=== PATIENT | male | born 1980 | race Caucasian/White ===

== ENCOUNTER 2017-12-01 12:13 | Emergency (ER) | payer OTHER ==
[2017-12-01] MEDS ORDERED: chlorproMAZINE INJ* 25 MG/ML 2 ML (50 MG) IM ONE (12:26)
[2017-12-01] MEDS ORDERED: chlorproMAZINE INJ* 25 MG/ML 2 ML (50 MG) ONE (12:26)
[2017-12-01 13:03] LABS: ABS Basophils 0 10^3/ul (0-0.2); ABS Eosinophils 0 10^3/ul (0-0.6); ABS Lymphocytes 1.1 10^3/ul (1.0-4.8); ABS Monocytes 0.7 10^3/ul (0-0.8); ABS Neutrophils 3.5 10^3/ul (1.5-7.7); ABS Nucleated RBC 0 10^3/ul; Eosinophil % 0.4 % (0-6); Hematocrit 40 % (42-52); Hemoglobin 13.7 g/dl (14.0-18.0); Lymphocyte % 21.2 % (25-47); Mean Corpuscular HGB Conc 34 g/dl (31-36); Mean Corpuscular Hemoglobin 30 pg (27-31); Mean Corpuscular Volume 89 fL (80-94); Mean Platelet Volume 8 um3 (7.4-10.4); Nucleated Red Blood Cells % 0; Platelet Count 258 10^3/ul (150-450); Red Blood Count 4.53 10^6/ul (4.0-5.4); Red Cell Distribution Width 15 % (10.5-15); White Blood Count 5.4 10^3/ul (3.5-10.8)
[2017-12-01 13:20] LABS: EGFR Non-African American 69.8 (>60)
--- NOTE | 2017-12-01 18:21 | ED ---
Martinez Lemus Jennifer, scribed for Babar Jones MD on 12/01/17 at 1224 . Psychiatric Complaint - HPI Summary HPI Summary: The patient is a 37 year old male who was brought [phone] to the ED by police for hearing voices and homicidal ideation that began today. The patient went to the police department to ask policemen to restrain him and that he was going to hurt someone if they didnt. He was brought in with restraints around his wrists and ankles. The patient reports he has previously been in the [facility]. LEVEL 5 CAVEAT: HPI limited due to severe agitation. - History Of Current Complaint Time Seen by Provider: 12/01/17 12:15 Hx Obtained From: Patient Onset/Duration: Still Present, Worse Since Timing: Constant Severity Initially: Moderate Severity Currently: Moderate Character: Manic Aggravating Factor(s): Nothing Alleviating Factor(s): Nothing Associated Signs And Symptoms: Positive: Hostile, Paranoid Behavior Has Homicidal: Reports: Thoughts - Allergies/Home Medications Home Medications: Home Medications Unobtainable [Unobtainable] 12/01/17 [History Confirmed 12/01/17] PMH/Surg Hx/FS Hx/Imm Hx Sensory History: Denies: Hx Legally Blind EENT History: Denies: Hx Deafness - Family History Known Family History: Negative: Renal Disease - Social History Substance Use Type: Reports: Heroin, Marijuana - Additional Comments History Additional Comments: LEVEL 5 CAVEAT: PMH limited due to severe agitation. Review of Systems ENT: Negative Cardiovascular: Negative Respiratory: Negative Gastrointestinal: Negative Genitourinary: Negative Musculoskeletal: Negative Skin: Negative Neurological: Negative, Other Psychological: Other Positive: Other - Agitated All Other Systems Reviewed And Are Negative: Yes - Comments Additional Review of Systems Comments: LEVEL 5 CAVEAT: ROS limited due to severe agitation. Physical Exam - Summary Physical Exam Summary: Appearance: Well-appearing, Well-nourished Skin: Warm, Dry, No rash Eyes: Normal, PERRL, EOMI, sclera anicteric ENT: Normal Neck: Supple, nontender Respiratory: Clear to auscultation Cardiovascular: S1, S2, no murmur, no rub, no gallop Abdomen: Soft, nontender, no organomegaly Bowel sounds: Present Musculoskeletal: Normal, Strength/ROM Intact, no edema, pulses symmetrical Neurological: Normal, A&Ox3, cranial nerves II-XII WNL, follows commands, gait not tested, sensation intact to pin and light touch Psychiatric: agitated, psychotic, discussing hearing voices, paranoid ideation, ideas of persecution. Triage Information Reviewed: Yes Vital Signs On Initial Exam: Initial Vitals Temp Pulse Resp BP Pulse Ox 36.8 C 88 17 153/119 98 12/01/17 12:17 12/01/17 12:17 12/01/17 12:17 12/01/17 12:17 12/01/17 12:17 Vital Signs Reviewed: Yes Diagnostics - Vital Signs Vital Signs Temp Pulse Resp BP Pulse Ox 12/01/17 12:17 36.8 C 88 17 153/119 98 - Laboratory Lab Results: Lab Results 12/01/17 12/01/17 12/01/17 Range/Units 12:50 12:50 16:10 WBC 5.4 (3.5-10.8) 10^3/ul RBC 4.53 (4.0-5.4) 10^6/ul Hgb 13.7 L (14.0-18.0) g/dl Hct 40 L (42-52) % MCV 89 (80-94) fL MCH 30 (27-31) pg MCHC 34 (31-36) g/dl RDW 15 (10.5-15) % Plt Count 258 (150-450) 10^3/ul MPV 8 (7.4-10.4) um3 Neut % (Auto) 65.3 (38-83) % Lymph % (Auto) 21.2 L (25-47) % [place] % (Auto) 12.2 H (1-9) % Eos % (Auto) 0.4 (0-6) % Baso % (Auto) 0.9 (0-2) % Absolute Neuts (auto) 3.5 (1.5-7.7) 10^3/ul Absolute Lymphs (auto) 1.1 (1.0-4.8) 10^3/ul Absolute Monos (auto) 0.7 (0-0.8) 10^3/ul Absolute Eos (auto) 0 (0-0.6) 10^3/ul Absolute Basos (auto) 0 (0-0.2) 10^3/ul Absolute Nucleated RBC 0 10^3/ul Nucleated RBC % 0 Sodium 134 (133-145) mmol/L Potassium 3.6 (3.5-5.0) mmol/L Chloride 102 (101-111) mmol/L Carbon Dioxide 25 (22-32) mmol/L Anion Gap 7 (2-11) mmol/L BUN 13 (6-24) mg/dL Creatinine 1.18 H (0.67-1.17) mg/dL Est GFR ( Amer) 89.8 (>60) Est GFR (Non-Af Amer) 69.8 (>60) BUN/Creatinine Ratio 11.0 (8-20) Glucose 97 (70-100) mg/dL Calcium 9.3 (8.6-10.3) mg/dL Total Bilirubin 0.40 (0.2-1.0) mg/dL AST 49 H (13-39) U/L ALT 41 (7-52) U/L Alkaline Phosphatase 44 (34-104) U/L Total Protein 6.6 (6.4-8.9) g/dL Albumin 4.2 (3.2-5.2) g/dL Globulin 2.4 (2-4) g/dL Albumin/Globulin Ratio 1.8 (1-3) TSH 1.14 (0.34-5.60) mcIU/mL Urine Opiates Screen None detected (None Detect) Ur Barbiturates Screen None detected (None Detect) Ur Phencyclidine Scrn None detected (None Detect) Ur Amphetamines Screen None detected (None Detect) U Benzodiazepines Scrn None detected (None Detect) Urine Cocaine Screen None detected (None Detect) U Cannabinoids Screen None detected (None Detect) Serum Alcohol < 10 (<10) mg/dL Result Diagrams: 12/01/17 12:50 12/01/17 12:50 Lab Statement: Any lab studies that have been ordered have been reviewed, and results considered in the medical decision making process. Course/Dx - Differential Dx/Clinical Impression Differential Diagnosis/HQI/PQRI: Positive: Acute Psychosis - , delusions of persecution. homicidal feelings, suicidal feelings, Homicidal Gesture, Suicidal Gesture Provider Diagnosis: Acute psychosis Discharge - Discharge Plan Condition: Good Disposition: ADMITTED TO OTHER HOSPITAL Referrals: No Primary Care Phys,NOPCP [Primary Care Provider] - Additional Instructions: RETURN TO THE EMERGENCY DEPARTMENT FOR CHANGING OR WORSENING SYMPTOMS. The documentation as recorded by the scribe, Henriquez,Jonna accurately reflects the service I personally performed and the decisions made by me, Babar Jones MD.
[2017-12-01 19:04] LABS: Urine Appearance Clear; Urine Blood Negative (Negative); Urine Color Straw; Urine Ketones Trace (Negative); Urine Protein Negative (Negative); Urine Specific Gravity 1.004 (1.010-1.030); Urine Urobilinogen Negative (Negative)
--- NOTE | 2017-12-02 05:16 | ED ---
Min Lemus Angela, scribed for Juan Alvarenga MD on 12/02/17 at 0451 . Progress - Progress Note Progress Note: This pt was signed out by Dr. Jones, pending disposition, awaiting MHE. [04:40] I spoke with Dr. Cee, psychiatrist, from [facility] to give report. Pt will be transferred to [facility], in stable condition, with a diagnosis of psychosis. Condition: Stable Disposition: Transferred to [facility] Course/Dx - Diagnoses Provider Diagnoses: Acute psychosis The documentation as recorded by the Min mata Angela accurately reflects the service I personally performed and the decisions made by , Juan Alvarenga MD.
[2017-12-02 05:42] VITALS: BP 152/87
== END 2017-12-02 05:41 | disposition short-term general hospital (02) ==
LOC: ED 12:13
DX: F23 Brief psychotic disorder (principal)
CPT/HCPCS: 36415; 80053; 80307; 80320; 81003; 84443; 85025; 93005; 96372; 99285; G0480

== ENCOUNTER 2018-01-02 12:30 | Emergency (ER) | payer OTHER ==
[2018-01-02] MEDS ORDERED: LORazepam INJ* 2 MG/ML 1 ML VIAL IM ONE (12:47)
[2018-01-02 13:29] LABS: ABS Basophils 0 10^3/ul (0-0.2); ABS Eosinophils 0 10^3/ul (0-0.6); ABS Lymphocytes 1.2 10^3/ul (1.0-4.8); ABS Monocytes 0.4 10^3/ul (0-0.8); ABS Neutrophils 4.6 10^3/ul (1.5-7.7); ABS Nucleated RBC 0 10^3/ul; Eosinophil % 0.1 % (0-6); Hematocrit 44 % (42-52); Hemoglobin 14.8 g/dl (14.0-18.0); Lymphocyte % 19.4 % (25-47); Mean Corpuscular HGB Conc 34 g/dl (31-36); Mean Corpuscular Hemoglobin 30 pg (27-31); Mean Corpuscular Volume 89 fL (80-94); Mean Platelet Volume 8 um3 (7.4-10.4); Nucleated Red Blood Cells % 0.1; Platelet Count 291 10^3/ul (150-450); Red Cell Distribution Width 14 % (10.5-15); White Blood Count 6.2 10^3/ul (3.5-10.8)
[2018-01-02] MEDS ORDERED: LORazepam INJ* 2 MG/ML 1 ML VIAL IV PUSH ONE (13:33)
[2018-01-02 13:46] LABS: EGFR Non-African American 83.6 (>60)
[2018-01-02] MEDS ORDERED: Ziprasidone IM INJ* 20 MG/ML VIAL IM ONE (14:01)
[2018-01-02 14:22] LABS: Urine Appearance Clear; Urine Blood Negative (Negative); Urine Color Yellow; Urine Ketones Negative (Negative); Urine Protein Negative (Negative); Urine Specific Gravity 1.016 (1.010-1.030); Urine Urobilinogen Negative (Negative)
--- NOTE | 2018-01-02 18:49 | ED ---
Min Lemus Angela, scribed for Jagdish Brooks MD on 01/02/18 at 1249 . Psychiatric Complaint - HPI Summary HPI Summary: This pt is a 37 y/o male presenting to [facility] for auditory hallucinations for the last couple of days. Pt reports he is "being mind fucked by the devil." Pt notes SI thoughts but denies SI plan. He states he has "to go to [facility] Pt notes he has had prior suicide attempts. Pt is prescribed lithium 600 mg but has not been taking it for the past 5 days. He has also been using intermittenly "a lot" of alcohol. PMHx includes bipolar disorder, schizoaffective disorder. - History Of Current Complaint Chief Complaint: EDMentalHealth Time Seen by Provider: 01/02/18 12:39 Hx Obtained From: Patient Onset/Duration: Lasting Days, Still Present Timing: Days Severity Currently: Severe Character: Manic, Anxious Aggravating Factor(s): Nothing Alleviating Factor(s): Nothing Associated Signs And Symptoms: Positive: Confused, Hallucinating - auditory Has Suicidal: Reports: Thoughts. Denies: With A Plan Has Homicidal: Denies: Thoughts, With A Plan - Allergies/Home Medications Allergies/Adverse Reactions: Allergies Allergy/AdvReac Type Severity Reaction Status Date / Time No Known Allergies Allergy Verified 12/02/17 00:41 Home Medications: Home Medications [place] Carbonate TAB* 600 mg PO BID 01/02/18 [History Confirmed 01/02/18] risperiDONE TAB* [RisperDAL*] 4 mg PO DAILY 01/02/18 [History Confirmed 01/02/18 ] PMH/Surg Hx/FS Hx/Imm Hx Sensory History: Denies: Hx Legally Blind, Hx Deafness Opthamlomology History: Denies: Hx Legally Blind Psychiatric History: Reports: Hx Bipolar Disorder, Hx of Violent Episodes Against Others, Other Psychiatric Issues/Disorders - Schizoaffective disorder Denies: Hx Eating Disorder Infectious Disease History: No Infectious Disease History: Denies: Traveled Outside the [place] in Last 30 Days - Family History Known Family History: Negative: Renal Disease - Social History Alcohol Use: Daily Substance Use Type: Reports: Heroin, Marijuana Smoking Status (MU): Unknown if Ever Smoked Review of Systems Negative: Fever, Chills ENT: Negative Cardiovascular: Negative Respiratory: Negative Gastrointestinal: Negative Genitourinary: Negative Psychological: Other - auditory hallucinations, SI thoughts Negative: Other - SI plan All Other Systems Reviewed And Are Negative: Yes Physical Exam - Summary Physical Exam Summary: VITAL SIGNS: Reviewed. GENERAL: Patient is a well-developed and nourished male. Patient is not in any acute respiratory distress. HEAD AND FACE: No signs of trauma. No ecchymosis, hematomas or skull depressions. No sinus tenderness. EYES: PERRLA, EOMI x 2, No injected conjunctiva, no nystagmus. EARS: Hearing grossly intact. Ear canals and tympanic membranes are within normal limits. MOUTH: Oropharynx within normal limits. NECK: Supple, trachea is midline, no adenopathy, no JVD, no carotid bruit, no c- spine tenderness, neck with full ROM. CHEST: Symmetric, no tenderness at palpation LUNGS: Clear to auscultation bilaterally. No wheezing or crackles. CVS: Regular rate and rhythm, S1 and S2 present, no murmurs or gallops appreciated. ABDOMEN: Soft, non-tender. No signs of distention. No rebound no guarding, and no masses palpated. Bowel sounds are normal. EXTREMITIES: FROM in all major joints, no edema, no cyanosis or clubbing. NEURO: Alert and oriented x 3. No acute neurological deficits. Speech is normal and follows commands. SKIN: Dry and warm PSYCH: Anxious and agitated. Triage Information Reviewed: Yes Vital Signs On Initial Exam: Initial Vitals Temp Pulse Resp BP Pulse Ox 99.9 F 95 18 151/100 96 01/02/18 12:34 01/02/18 12:34 01/02/18 12:34 01/02/18 12:34 01/02/18 12:34 Vital Signs Reviewed: Yes Diagnostics - Vital Signs Vital Signs Temp Pulse Resp BP Pulse Ox 01/02/18 12:34 99.9 F 95 18 151/100 96 - Laboratory Result Diagrams: 01/02/18 13:20 01/02/18 13:20 Lab Statement: Any lab studies that have been ordered have been reviewed, and results considered in the medical decision making process. Re-Evaluation - Re-Evaluation First Eval Re-Evaluation Time: 14:00 Change: Worse Comment: Pt is getting more agitated and screaming. Pt will be given Geodon IM to protect him and the staff members. Course/Dx - Course Assessment/Plan: This pt is a 37 y/o male presenting to [facility] for auditory hallucinations for the last couple of days. Pt reports he is "being mind fucked by the devil." Pt notes SI thoughts but denies SI plan. He states he has "to go to hell before he can go to heaven." Pt notes he has had prior suicide attempts. Pt is prescribed lithium 600 mg but has not been taking it for the past 5 days. He has also been using intermittenly "a lot" of alcohol. PMHx includes bipolar disorder, schizoaffective disorder. [14:00] Pt is getting more agitated and screaming. Pt will be given Nica IM for his own safety and safety of the staff members. Test results without any significant abnormalities. Urine toxicology is negative. Pt is medically cleared at 15:19. He is awaiting MHE. Pt will be signed out to Dr. Alvarenga, pending disposition, awaiting MHE. - Differential Dx/Clinical Impression Provider Diagnosis: Suicidal ideation, Depression Discharge - Discharge Plan Condition: Stable Disposition: OTHER Discharge Disposition Comment: signed out to Dr. Alvarenga, pending dispo, awaiting MHE Referrals: No Primary Care Phys,NOPCP [Primary Care Provider] - The documentation as recorded by the Min mata Angela accurately reflects the service I personally performed and the decisions made by me, Jagdish Brooks MD.
[2018-01-03] MEDS ORDERED: LORazepam TAB(*) 1 MG PO ONE (07:03)
[2018-01-03] MEDS ORDERED: Ziprasidone IM INJ* 20 MG/ML VIAL IM ONE (07:31)
--- NOTE | 2018-01-03 09:47 | PN ---
ED Flex Patient Progress Note Date of Service: 01/03/18 Subjective: This is a 37 year-old M who is pending transfer to another psychiatric facility pending psychiatric review by [facility] in [place] as there is an available bed. Pt offers no complaints at this time. Objective: Vitals: Most recent vital signs documented below. General NAD, Alert and oriented x3. Heart: rrr at 78 bpm Lungs: CTA or with rales, rhonchi, wheezing Laboratory: Current laboratory results documented below. Assessment: pending psych transfer to [facility] awaiting psych review Plan: Pending psychiatric transfer after speaking with psychiatrist at [facility] in [place]. will follow up daily. Vital Signs Temp Pulse Resp BP Pulse Ox 98.3 F 79 16 153/103 96 01/02/18 21:24 01/02/18 21:24 01/02/18 21:24 01/02/18 21:24 01/02/18 21:24 Lab Results - Entire Visit 01/02/18 01/02/18 01/02/18 13:40 13:40 13:20 WBC 6.2 RBC 5.00 Hgb 14.8 Hct 44 MCV 89 MCH 30 MCHC 34 RDW 14 Plt Count 291 MPV 8 Neut % (Auto) 73.9 Lymph % (Auto) 19.4 L [place] % (Auto) 5.8 Eos % (Auto) 0.1 Baso % (Auto) 0.8 Absolute Neuts (auto) 4.6 Absolute Lymphs (auto) 1.2 Absolute Monos (auto) 0.4 Absolute Eos (auto) 0 Absolute Basos (auto) 0 Absolute Nucleated RBC 0 Nucleated RBC % 0.1 Sodium Potassium Chloride Carbon Dioxide Anion Gap BUN Creatinine Est GFR ( Amer) Est GFR (Non-Af Amer) BUN/Creatinine Ratio Glucose Calcium Total Bilirubin AST ALT Alkaline Phosphatase Total Protein Albumin Globulin Albumin/Globulin Ratio TSH Urine Color Yellow Urine Appearance Clear Urine pH 5.0 Ur Specific [place] 1.016 Urine Protein Negative Urine Ketones Negative Urine Blood Negative Urine Nitrate Negative Urine Bilirubin 1+ A Urine Urobilinogen Negative Ur Leukocyte Esterase Negative Urine Glucose Negative Salicylates Urine Opiates Screen None detected Acetaminophen Ur Barbiturates Screen None detected Ur Phencyclidine Scrn None detected Ur Amphetamines Screen None detected U Benzodiazepines Scrn None detected Urine Cocaine Screen None detected U Cannabinoids Screen None detected Serum Alcohol 01/02/18 13:20 WBC RBC Hgb Hct MCV MCH MCHC RDW Plt Count MPV Neut % (Auto) Lymph % (Auto) [place] % (Auto) Eos % (Auto) Baso % (Auto) Absolute Neuts (auto) Absolute Lymphs (auto) Absolute Monos (auto) Absolute Eos (auto) Absolute Basos (auto) Absolute Nucleated RBC Nucleated RBC % Sodium 134 Potassium 3.8 Chloride 101 Carbon Dioxide 26 Anion Gap 7 BUN 9 Creatinine 1.01 Est GFR ( Amer) 107.5 Est GFR (Non-Af Amer) 83.6 BUN/Creatinine Ratio 8.9 Glucose 96 Calcium 9.8 Total Bilirubin 0.50 AST 28 ALT 22 Alkaline Phosphatase 56 Total Protein 7.5 Albumin 4.5 Globulin 3.0 Albumin/Globulin Ratio 1.5 TSH 0.48 Urine Color Urine Appearance Urine pH Ur Specific [place] Urine Protein Urine Ketones Urine Blood Urine Nitrate Urine Bilirubin Urine Urobilinogen Ur Leukocyte Esterase Urine Glucose Salicylates < 2.50 Urine Opiates Screen Acetaminophen < 15 Ur Barbiturates Screen Ur Phencyclidine Scrn Ur Amphetamines Screen U Benzodiazepines Scrn Urine Cocaine Screen U Cannabinoids Screen Serum Alcohol < 10
[2018-01-03 16:22] VITALS: BP 148/84
--- NOTE | 2018-01-03 20:44 | ED ---
Nory Lemus Julia, scribed for Juan Alvarenga MD on 01/02/18 at 1908 . Progress - Progress Note Progress Note: This patient is signed out from Dr. Brooks, awaiting mental health evaluation and disposition. Re-Evaluation - Re-Evaluation First Eval Re-Evaluation Time: 14:00 Change: Worse Comment: Pt is getting more agitated and screaming. Pt will be given Geodon IM to protect him and the staff members. Course/Dx - Course Course Of Treatment: If a [place] can [place], patient will be transferred there. If there is no availble [place] center patient will be admitted by Dr. Sun. - Diagnoses Provider Diagnoses: Psychosis The documentation as recorded by the Nory mata Julia accurately reflects the service I personally performed and the decisions made by , Juan Alvarenga MD.
--- NOTE | 2018-01-06 17:55 | ED ---
Min Lemus Angela, scribed for Jagdish Brooks MD on 01/03/18 at 1517 . Progress - Progress Note Progress Note: This pt was signed out by Dr. Alvarenga awaiting transfer to [facility]. Pt was evaluated by the [facility] [employer] and his case was reviewed by Dr. Sun. Dr. Sun recommends to transfer the pt to [facility]. [15:15] I spoke with Dr. Baker, psychiatrist from [facility], who accepted the pt for transfer. Pt will be transferred to [facility], in stable condition, with a diagnosis of psychosis. Condition: Stable Disposition: Transfer to [place] Course/Dx - Diagnoses Provider Diagnoses: Psychosis The documentation as recorded by the Min mata Angela accurately reflects the service I personally performed and the decisions made by me, Jagdish Brooks MD.
== END 2018-01-03 16:23 ==
LOC: ED 12:30
DX: F29 Unspecified psychosis not due to a substance or known physiological condition (principal); F32.9 Major depressive disorder, single episode, unspecified; R41.0 Disorientation, unspecified; R45.851 Suicidal ideations
CPT/HCPCS: 36415; 80053; 80307; 80320; 80329; 81003; 84443; 85025; 93005; 99284; G0480; J2060; J3486